=== PATIENT | female | born 1960 | race Caucasian/White ===

== ENCOUNTER → 2016-06-29 | Outpatient (CLI) | payer BC ==
[~2016-06-29] MED LIST: ASPIRIN E.C. 8181 MG PO; B-12500 MCG SL; CLARITIN PO; CONTRAVE1 TER PO; DAILY MULTIPLE1 TA3 PO; FASTIN30 MG; FISH OIL1000 MG PO; HEALTH CARE AM500 M3 PO; IRON50 MG PO; JINTELI 5 MCG-11 TAB PO; LO/OVRAL-28 301 TA1 PO; VITAMIN D 1001000 IU PO; WELLBUTRIN XL150 MG PO
== END ==
LOC: MC.RAD 13:35
DX: Z12.31 Encounter for screening mammogram for malignant neoplasm of breast (principal); Z80.3 Family history of malignant neoplasm of breast

== ENCOUNTER → 2016-08-02 | Outpatient (CLI) | payer BC | LOC: LIGHT 11:30 | DX: E88.81 Metabolic syndrome and other insulin resistance (principal); R73.01 Impaired fasting glucose; E66.8 Other obesity; Z68.35 Body mass index [BMI] 35.0-35.9, adult ==

== ENCOUNTER → 2016-09-06 | Outpatient (CLI) | payer BC ==
[~2016-09-06] VITALS: Ht 168.9 cm; Wt 107.0 kg
[2016-09-06 11:54] VITALS: BP 118/67; PULSE 84
== END ==
LOC: LIGHT 11:50
DX: E88.81 Metabolic syndrome and other insulin resistance (principal); E66.8 Other obesity; Z68.37 Body mass index [BMI] 37.0-37.9, adult

== ENCOUNTER → 2016-10-04 | Outpatient (CLI) | payer BC ==
[~2016-10-04] VITALS: Ht 168.9 cm; Wt 107.7 kg
[2016-10-04 13:34] VITALS: BP 122/67; PULSE 61
== END ==
LOC: LIGHT 13:20
DX: E88.81 Metabolic syndrome and other insulin resistance (principal); E66.9 Obesity, unspecified; Z68.37 Body mass index [BMI] 37.0-37.9, adult; Z71.3 Dietary counseling and surveillance

== ENCOUNTER → 2017-07-12 | Outpatient (CLI) | payer BC | LOC: MC.RAD 13:18 | DX: Z12.31 Encounter for screening mammogram for malignant neoplasm of breast (principal) ==

== ENCOUNTER → 2018-06-27 | Outpatient (CLI) | payer BC | LOC: MC.RAD 13:02 | DX: Z12.31 Encounter for screening mammogram for malignant neoplasm of breast (principal) ==